=== PATIENT | female | born 1990 | race Caucasian/White ===

== ENCOUNTER 2019-11-04 12:18 | Emergency (ER) | payer SELFPAY ==
[2019-11-04 13:04] VITALS: BP 115/74
--- NOTE | 2019-11-04 13:54 | ED ---
Throat Pain/Nasal Congestion - HPI Summary HPI Summary: 29 yr old female with the complaint of sore throat, runny nose, coughing. The patient has not had fever or chills. She does have ill exposures. She has right ear discomfort now as well. Onset of symptoms three days ago. The patient denies SOB. She does have discomfort in the left sternal area with coughing. - History of Current Complaint Chief Complaint: UCGeneralIllness Time Seen by Provider: 11/04/19 13:43 - Allergies/Home Medications Allergies/Adverse Reactions: Allergies Allergy/AdvReac Type Severity Reaction Status Date / Time No Known Allergies Allergy Verified 11/04/19 13:04 PMH/Surg Hx/FS Hx/Imm Hx Infectious Disease History: No Infectious Disease History: Denies: Traveled Outside the [place] in Last 30 Days - Family History Known Family History: Positive: None - Social History Alcohol Use: None Substance Use Type: Reports: None Smoking Status (MU): Current Every Day Smoker Type: Cigarettes Amount Used/How Often: 1PPD Have You Smoked in the Last Year: Yes Review of Systems Constitutional: Negative Positive: Cough All Other Systems Reviewed And Are Negative: Yes Physical Exam Triage Information Reviewed: Yes Vital Signs On Initial Exam: Initial Vitals Temp Pulse Resp BP Pulse Ox 99.1 F 71 16 115/74 100 11/04/19 13:00 11/04/19 13:00 11/04/19 13:00 11/04/19 13:00 11/04/19 13:00 Vital Signs Reviewed: Yes Appearance: Positive: Well-Appearing, No Pain Distress Skin: Positive: Warm, Skin Color Reflects Adequate Perfusion Head/Face: Positive: Normal Head/Face Inspection Eyes: Positive: EOMI ENT: Positive: Pharyngeal erythema, Nasal congestion, TM red - right with effusion Neck: Positive: Nontender Respiratory/Lung Sounds: Positive: Clear to Auscultation, Breath Sounds Present Cardiovascular: Positive: RRR. Negative: Murmur Abdomen Description: Negative: Distended Musculoskeletal: Positive: Strength/ROM Intact Neurological: Positive: Sensory/Motor Intact, Alert, Oriented to Person Place, Time, CN Intact II-III, Normal Gait, Speech Normal Psychiatric: Positive: Normal Diagnostics - Vital Signs Vital Signs Temp Pulse Resp BP Pulse Ox 11/04/19 13:00 99.1 F 71 16 115/74 100 - Laboratory Lab Statement: Any lab studies that have been ordered have been reviewed, and results considered in the medical decision making process. EENT Course/Dx - Course Course Of Treatment: 29 yr old female with right OM, and coughing. Rx amox and tessalon - Diagnoses Provider Diagnoses: Right otitis media, Cough Discharge ED - Sign-Out/Discharge Documenting (check all that apply): Patient Departure All imaging exams completed and their final reports reviewed: No Studies - Discharge Plan Condition: Good Disposition: HOME Prescriptions: Amoxicillin PO (*) [Amoxicillin 500 MG CAP*] 500 mg PO TID #30 cap Benzonatate CAP* [Tessalon 100 MG CAP*] 100 mg PO TID PRN #[id number] PRN Reason: Cough Patient Education Materials: Ear Infection (ED) Referrals: No Primary Care Phys,NOPCP [Primary Care Provider] - [facility] [Outside] - 2 Days - Billing Disposition and Condition Condition: GOOD Disposition: Home
== END 2019-11-04 14:00 | disposition home or self-care (01) ==
LOC: UCCORT 12:18
DX: R05 Cough (principal); H66.91 Otitis media, unspecified, right ear; J02.9 Acute pharyngitis, unspecified; R09.89 Other specified symptoms and signs involving the circulatory and respiratory systems
CPT/HCPCS: 99202; G0463